=== PATIENT | female | born 1985 | race African-American/Black ===

== ENCOUNTER 2020-06-16 12:00 | Emergency (ER) | payer MEDICAID ==
[~2020-06-16] VITALS: Ht 157.5 cm; Wt 100.0 kg
[2020-06-16 12:22] VITALS: BP 96/63
[2020-06-16] MEDS ORDERED: IBUPROFEN 600MG TABLET PO ONE (12:45)
== END 2020-06-16 14:10 | disposition left against medical advice (07) ==
LOC: ER 12:05
DX: S49.81XA Other specified injuries of right shoulder and upper arm, initial encounter (principal); X58.XXXA Exposure to other specified factors, initial encounter; Y93.89 Activity, other specified; Y92.89 Other specified places as the place of occurrence of the external cause; Y99.8 Other external cause status
CPT/HCPCS: 99282